=== PATIENT | female | born 1970 | race Caucasian/White ===

== ENCOUNTER 2017-03-07 09:20 | Emergency (ER) | payer MEDICAID ==
[~2017-03-07] VITALS: Ht 167.6 cm; Wt 72.0 kg
[2017-03-07 09:22] VITALS: Ht 167.6 cm; Wt 72.0 kg
[2017-03-07] MEDS ORDERED: IBUPROFEN 800 MG TAB PO ONE (10:30)
[2017-03-07 10:34] LABS: BASOPHIL # 0.1 10^3/ul (0.0-0.1); BASOPHILS % 0.5 % (0.0-2.0); EOSINOPHILS # 0.3 10^3/ul (0.0-0.5); EOSINOPHILS % 3.4 % (0.0-7.0); HEMATOCRIT 43.1 % (37.0-47.0); HEMOGLOBIN 14.4 g/dl (12.0-16.0); MEAN CORPUSCULAR HEMOGLOBIN 29.2 pg (29.0-33.0); MEAN CORPUSCULAR HGB CONC 33.4 g/dl (32.0-37.0); MEAN CORPUSCULAR VOLUME 87.4 fl (82.0-101.0); MEAN PLATELET VOLUME 9.5 fl (7.4-10.4); MONOCYTE # 0.9 10^3/ul (0.3-0.9); MONOCYTES % 9.4 % (0.0-11.0); NEUTROPHIL # 5.6 10^3/ul (1.6-7.5); NEUTROPHILS % 56.4 % (39.0-77.0); PLATELET COUNT 228 10^3/UL (140-415); RED BLOOD COUNT 4.93 10^6/ul (4.20-5.40); RED CELL DISTRIBUTION WIDTH 12.9 % (11.5-14.5); WHITE BLOOD COUNT 9.9 10^3/ul (4.8-10.8)
--- NOTE | 2017-03-07 10:34 | RADRPT ---
PROCEDURE: Chest Radiograph. CLINICAL INDICATION: Chest pain TECHNIQUE: Single frontal chest radiograph. COMPARISON: None available FINDINGS: The cardiomediastinal silhouette is within normal limits. No infiltrate or effusion is seen. Th e bones are intact. IMPRESSION: 1. Unremarkable chest radiograph. RPTAT: KK .Simon Love MD, MD Date Time Electronically viewed and signed by .Simon Love MD, on 03/07/2017 10:33 .B/
[2017-03-07 10:37] LABS: INR 0.93; PROTIME 12.5 Sec (12.2-14.2)
[2017-03-07 10:38] LABS: PARTIAL THROMBOPLASTIN TIME 31.7 Sec (25.0-35.0)
[2017-03-07 10:55] LABS: TROPONIN-I < 0.012 ng/ml (0.00-0.12)
[2017-03-07 11:07] LABS: ANION GAP 18 (8-16); BLOOD UREA NITROGEN 15 mg/dl (7-20); CALCIUM 8.9 mg/dl (8.4-10.2); CARBON DIOXIDE 25 mmol/L (21-31); CHLORIDE 108 mmol/L (97-110); CREATININE 0.78 mg/dl (0.44-1.00); GLUCOSE 103 mg/dl (70-220); POTASSIUM 4.1 mmol/L (3.5-5.1); SODIUM 147 mmol/L (135-144)
[2017-03-07 11:08] LABS: ALBUMIN 3.7 g/dl (3.3-4.9); BILIRUBIN,INDIRECT 0.4 mg/dl (0-1.1); BILIRUBIN,TOTAL 0.4 mg/dl (0.2-1.3); TOTAL PROTEIN 5.9 g/dl (6.1-8.1)
[2017-03-07] MEDS ORDERED: IBUP-1542 PO (11:12)
--- NOTE | 2017-03-07 11:47 | ERD ---
ER Documentation Chief Complaint Date/Time DATE: 03/07/17 TIME: 11:46 Chief Complaint CHEST PAIN X 2 DAYS HPI Patient is a 46-year-old female with hypertension who presents with chest pain. She has a chest pain for 2 days and she feels some radiation down the left arm. She said that is a sharp pain. She is not taking her blood pressure medicines currently because she was unable to obtain them. Upon review of old medical records this is the patient's first visit to the emergency department. She has had no treatment as of yet. ROS All systems reviewed and are negative except as per history of present illness. Medications Home Meds Active Scripts Ibuprofen* (Motrin*) 600 Mg Tab, 600 MG PO Q8, #30 TAB Prov:AKSHAT LOPEZ MD 03/07/17 Allergies Allergies: Coded Allergies: No Known Allergy (Unverified , 03/07/17) PMhx/Soc Positive for hypertension FmHx Family History: diabetes, No coronary disease Physical Exam Vitals Vital Signs Date Time Temp Pulse Resp B/P Pulse Ox O2 Delivery O2 Flow Rate FiO2 03/07/17 13:00 60 20 166/80 98 Room Air 03/07/17 12:06 47 20 184/86 98 Room Air 03/07/17 09:22 98.2 48 18 177/79 97 Physical Exam Const: No acute distress Head: Atraumatic Eyes: Normal Conjunctiva ENT: Normal External Ears, Nose and Mouth. Neck: Full range of motion..~ No meningismus. Resp: Clear to auscultation bilaterally Cardio: Regular rate and rhythm, no murmurs Abd: Soft, non tender, non distended. Normal bowel sounds Skin: No petechiae or rashes Back: No midline or flank tenderness Ext: No cyanosis, or edema, the patient does have chest wall pain to the left chest with palpation which reproduces her pain Neur: Awake and alert Psych: Normal Mood and Affect Result Diagram: 03/07/1730 03/07/17 0930 Results 24 hrs Laboratory Tests Test 03/07/17 09:30 White Blood Count 9.910^3/ul Red Blood Count 4.9310^6/ul Hemoglobin 14.4g/dl Hematocrit 43.1% Mean Corpuscular Volume 87.4fl Mean Corpuscular Hemoglobin 29.2pg Mean Corpuscular Hemoglobin Concent 33.4g/dl Red Cell Distribution Width 12.9% Platelet Count 40870^3/UL Mean Platelet Volume 9.5fl Neutrophils % 56.4% Lymphocytes % 30.0% Monocytes % 9.4% Eosinophils % 3.4% Basophils % 0.5% Nucleated Red Blood Cells % 0.0/100WBC Neutrophils # 5.610^3/ul Lymphocytes # 3.010^3/ul Monocytes # 0.910^3/ul Eosinophils # 0.310^3/ul Basophils # 0.110^3/ul Nucleated Red Blood Cells # 0.010^3/ul Prothrombin Time 12.5Sec Prothrombin Time Ratio 1.0 INR International Normalized Ratio 0.93 Activated Partial Thromboplast Time 31.7Sec Sodium Level 147mmol/L Potassium Level 4.1mmol/L Chloride Level 108mmol/L Carbon Dioxide Level 25mmol/L Anion Gap 18 Blood Urea Nitrogen 15mg/dl Creatinine 0.78mg/dl Glucose Level 103mg/dl Calcium Level 8.9mg/dl Total Bilirubin 0.4mg/dl Direct Bilirubin 0.00mg/dl Indirect Bilirubin 0.4mg/dl Aspartate Amino Transf (AST/SGOT) 24IU/L Alanine Aminotransferase (ALT/SGPT) 23IU/L Alkaline Phosphatase 68IU/L Troponin I < 0.012ng/ml Total Protein 5.9g/dl Albumin 3.7g/dl Lipase 90U/L Current Medications Medications (Trade) Dose Ordered Sig/Josias Route PRN Reason Start Time Stop Time Status Last Admin Dose Admin Ibuprofen (Motrin) 800 mg ONCE ONCE PO 03/07/17 10:30 03/07/17 10:31 DC 03/07/17 10:30 Nicardipine HCl (Cardene) 30 mg ONCE ONCE PO 03/07/17 12:30 03/07/17 12:31 DC 03/07/17 12:37 Miscellaneous Medication (Gi Cocktail (2)) 40 ml ONCE ONCE PO 03/07/17 12:30 03/07/17 12:31 DC 03/07/17 12:37 Procedures/MDM EKG #1 read by me: Rate/Rhythm: Sinus bradycardia rate of 49 Intervals: Normal Impression: Bradycardia without ischemia EKG #2 read by me: Rate/Rhythm: Sinus bradycardia rate of 47 Intervals: Normal Impression: Bradycardia without ischemia Chest x-ray negative per radiology. Patient is a 46-year-old female presents with chest pain. The patient was found to have a negative troponin and 2 EKGs which did not show any signs of ischemia. She has bradycardia but it is a sinus bradycardia. Chest x-ray shows no obvious pneumonia or pneumothorax. At this point I doubt pulmonary embolism or aortic dissection or acute coronary syndrome. Her PERC score is 0. The patient will be discharged home with a prescription for ibuprofen but she will need close follow-up with a primary doctor within 24-48 hours for reevaluation. She can return for any worsening symptoms. Departure Diagnosis: Primary Impression: Chest pain Chest pain type: unspecified Qualified Code: R07.9 - Chest pain, unspecified type Condition: Fair Patient Instructions: Chest Pain, Uncertain Cause Referrals: COUNT INCLUDES THE [facility] YOU HAVE RECEIVED A MEDICAL SCREENING EXAM AND THE RESULTS INDICATE THAT YOU DO NOT HAVE A CONDITION THAT REQUIRES URGENT TREATMENT IN THE EMERGENCY DEPARTMENT. FURTHER EVALUATION AND TREATMENT OF YOUR CONDITION CAN WAIT UNTIL YOU ARE SEEN IN YOUR DOCTORS OFFICE WITHIN THE NEXT 1-2 DAYS. IT IS YOUR RESPONSIBILITY TO MAKE AN APPOINTMENT FOR FOL-UP CARE. IF YOU HAVE A PRIMARY DOCTOR --you should call your primary doctor and schedule an appointment IF YOU DO NOT HAVE A PRIMARY DOCTOR YOU CAN CALL OUR PHYSICIAN REFERRAL HOTLINE AT IF YOU CAN NOT AFFORD TO SEE A PHYSICIAN YOU CAN CHOSE FROM THE FOLLOWING [facility] [address] [facility]. [facility] [address] [facility] [address] [facility] [facility] [address] [facility] [address] [facility]. [facility]. [address] Additional Instructions: Call your primary care doctor TOMORROW for an appointment during the next 1-2 days.See the doctor sooner or return here if your condition worsens before your appointment time. AKSHAT LOPEZ MD Mar 07, 2017 11:47
[2017-03-07] MEDS ORDERED: LIDOCAINE/MYLANTA 40 ML BTL PO ONE (12:30)
[2017-03-07] MEDS ORDERED: NICARDipine HCL 30 MG CAPSULE PO ONE (12:30)
[2017-03-07 13:00] VITALS: BP 166/80; PULSE 60; RESP 20
== END 2017-03-07 13:01 | disposition home or self-care (01) ==
LOC: E/R 09:20
DX: R07.9 Chest pain, unspecified (principal); I10 Essential (primary) hypertension
CPT/HCPCS: 36415; 71010; 80048; 80076; 83690; 84484; 85025; 85610; 85730; 93005; Z7502; Z7610